=== PATIENT | female | born 1970 | race Caucasian/White ===

== ENCOUNTER 2018-01-28 19:17 | Emergency (ER) | payer BC, SELFPAY ==
[2018-01-28 19:18] VITALS: BP 173/100; PULSE 69; PULSE 84; RESP 18; TEMP 36.9; O2SAT 100; O2SAT 97; BMI 29.9
--- NOTE | 2018-01-28 19:23 | ED.RN ---
RN CALLED FOR EKG, NO OLD EKGS IN MUSE
--- NOTE | 2018-01-28 19:25 | EKG12_ITS ---
Test Reason : Blood Pressure : / mmHG Vent. Rate : 070 BPM Atrial Rate : 070 BPM P-R Int : 204 ms QRS Dur : 082 ms QT Int : 412 ms P-R-T Axes : 007 003 043 degrees QTc Int : 444 ms Normal sinus rhythm Normal ECG Confirmed by ALECIA AKBAR MD ([id number]), [employer] DANE CLINE ([id number]) on 02/01/2018 2:51:05 PM Referred By: MELANIE Confirmed By:ALECIA AKBAR MD
--- NOTE | 2018-01-28 19:25 | RAD_ITS ---
STUDY: X-RAY CHEST REASON FOR EXAM: Female, 47 years old. Chest pain TECHNIQUE: Single AP portable view of the chest. COMPARISON: None. FINDINGS: The lungs are clear and expanded. There is no demonstrated pleural abnormality. Normal size heart. Normal mediastinum and dex. Normal visualized pulmonary arteries. Normal visualized aortic arch and descending thoracic aorta. Normal visualized thoracic spine. Normal visualized ribs, clavicles, and shoulders. There is no demonstrated abnormality of the visualized soft tissue structures of the upper abdomen. RAD/Chest 1 View (Portable) IMPRESSION: Normal x-ray examination of the chest. Electronically Signed: Janel Zavala MD at 19:50 EST , Service support ,
[2018-01-28 19:30] VITALS: O2SAT 100
[2018-01-28] MEDS: Aspirin 81 MG TAB.CHEW 324 MG PO (19:35)
--- NOTE | 2018-01-28 19:39 | CT_ITS ---
STUDY: CT BRAIN WITHOUT CONTRAST REASON FOR EXAM: Female, 47 years old. Headache, chest pain and elevated blood pressure. RADIATION DOSAGE (If Supplied By Facility): CTDIvol = ( 44.99 ) mGy, DLP = ( 796.11 ) mGycm TECHNIQUE: Transaxial CT imaging of the brain was performed without administration of intravenous contrast material. Individualized dose optimization techniques were used for this CT. COMPARISON: None. FINDINGS: Normal soft tissue structures. Normal calvarium. Normal size ventricles and extra-axial spaces for the patient's age. Normal white matter tracts of the cerebral hemispheres. Normal basal ganglia and thalami. Normal brainstem. Normal cerebellum. There is no intracranial hemorrhage. There are no findings of an acute ischemic infarction. Normal visualized paranasal sinuses. CT/Brain/Head without Contrast IMPRESSION: Normal unenhanced CT scan of the brain. Electronically Signed: Janel Zavala MD at 20:32 EST , Service support ,
[2018-01-28] MEDS: Ondansetron 4 MG/2 ML Vial IV (19:44)
[2018-01-28] MEDS: morphine 8 MG/ML Syringe IV (19:44)
--- NOTE | 2018-01-28 19:44 | ED.DCSUM_ITS ---
- ER Visit Summary Date of Service: 01/28/18 Chief Complaint: [] Sharp stabbing chest pain since 3 PM today headache nasal congestion History of Present Illness: The patient is a 47 F [] she of hypertension and migraine headaches reports that today around 3:00 she been having sharp stabbing left-sided chest pain, she also complains of a typical migraine type headache and nasal pressure and congestion. She has had no fever no cough no numbness weakness or paresthesias she has no history of [place] PE DVT no risk factors she was at work today when the chest pain intensified she came in for evaluation she had normal bowel bladder habits Believe she had a prior evaluation for these headaches and was never told she has a history of brain aneurysms or tumors the headache is typical of her usual headache disorder but she is not sure why she has headache and chest pain today Physical Examination: [] Afebrile, 170/100 General, no distress resting comfortably HEENT is generally unremarkable The neck is supple no adenopathy Cardiovascular, regular rate and rhythm Lungs, clear bilateral Abdomen, soft nontender Extremities, no clubbing cyanosis or edema Neurologic, awake alert answering questions appropriately moving all 4 extremities The patient's lab studies are all generally unremarkable, as is the head CT, on reevaluation she is feeling better we discussed inpatient versus outpatient management we discussed the long differential for chest pain the concept of an occult cardiac condition or other conditions that are undiagnosable at this time, she indicates she understands all the above but does not wish to be admitted prefers outpatient management at this time she is discharged home she will take 2 baby aspirin a day follow with her doctors tomorrow return for change in symptoms Test Results: [] Emergency Department Course and Treatment: [] The EKG shows a sinus rhythm no acute injury pattern appreciated given her complaints screening labs pain management head CT Treatment Plan: [] Disposition: [] Home stable declined admission Impression: [] Sharp left-sided chest pain resolved This note was generated with [employer] dictation software. It may contain incorrect words, spelling, and punctuation that were not noted in review of the chart prior to signing ED Disposition - Plan for ED Patient: Chief Complaint: Chest Pain Referrals: Gutierrez Staples MD [Primary Care Provider] -
[2018-01-28] MEDS: 0.9% Normal Saline 1,000 ML 999 ML IV (19:46)
[2018-01-28 19:52] LABS: Absolute Lymphocyte Count 3.89 X10^3/ul (0.83-4.51); Absolute Neutrophil Count 5.5 X10^3/uL (2.0-7.7); Basophil# 0.03 X10^3/uL; Basophil% 0.3 % (0-1); Eosinophil# 0.08 X10^3/uL; Eosinophils% 0.8 % (0-5); Hematocrit 39.9 % (37-47); Hemoglobin 13.1 g/dl (12.0-15.0); Lymphocyte # 3.89 X10^3/ul (4.0); Mean Corp Hgb Conc 32.8 g/gl (32-36); Mean Corpuscular Hgb 28.7 pg (27.0-32.0); Mean Corpuscular Volume 87.5 fL (81-99); Mean Platelet Vol. 9.1 fl (6.2-12.0); Monocyte# 0.66 X10^3/uL; Monocyte% 6.5 % (0-10); Neutrophil # 5.51 X10^3/uL (2.7-7.7); Neutrophil % 53.8 % (47-70); Platelet Count 329 K/mm3 (150-450); RBC Distribution Width CV 13.7 % (11.6-14.6); RBC Distribution Width SD 43.4 fl (35.1-43.9); Red Blood Count 4.56 M/mm3 (4.2-5.4); White Blood Count 10.2 K/mm3 (4.4-11.0)
[2018-01-28 19:55] LABS: POSITIVE COUNT NO; POSITIVE DIFFERENTIAL NO; POSITIVE MORPHOLOGY NO
[2018-01-28 20:01] LABS: Anion Gap 7 (5-15); BUN 17 mg/dL (7-18); Calcium,Total 8.8 mg/dL (8.5-10.1); Chloride 104 mmol/L (98-107); Creatinine, Serum 0.85 mg/dL (0.55-1.02); EST Glomerular Filtration Rate 76 mL/min (>60); Est Glom Filt Rate - Afr Amer 92 mL/min (>60); Estimated Creatinine Clearance 80.42 ml/min; Glucose 89 mg/dL (74-106); Potassium 3.1 mmol/L (3.5-5.1); Sodium Level 138 mmol/L (136-145)
[2018-01-28 20:12] LABS: D-Dimer Quantitative (DVT/PE) 0.31 FEU/ug/m (0.27-0.49)
[2018-01-28 20:25] LABS: BNP,B-Type NATRIURETIC PEPTIDE 35.1 pg/mL (0-100)
--- NOTE | 2018-01-28 21:06 | ED.DEP ---
ED Disposition - Plan for ED Patient: Chief Complaint: Chest Pain Instructions: ED Chest Pain Atypical Unkn Cause Referrals: Gutierrez Staples MD [Primary Care Provider] - Additional Instructions: Please take 2 baby aspirin every day follow-up with your doctors return for change in symptoms
[2018-01-28 21:12] VITALS: BP 174/106; PULSE 72; RESP 16; O2SAT 95
== END 2018-01-28 21:20 | disposition home or self-care (01) ==
LOC: ED 19:55
PROVIDERS: Emergency Provider Emergency Medicine
DX: R07.9 Chest pain, unspecified (principal); I10 Essential (primary) hypertension; R51 Headache
CPT/HCPCS: 70450; 71045; 80048; 83880; 84484; 85025; 85379; 93005; 96361; 96374; 96375; 99285; J7030; J2405

== ENCOUNTER → 2019-02-10 17:04 | Outpatient (CLI) | payer BC, SELFPAY ==
--- NOTE | 2019-02-10 17:10 | RAD_ITS ---
STUDY: X-RAY - LUMBAR SPINE REASON FOR EXAM: Female, 48 years old. Pain TECHNIQUE: 3 view(s) of the lumbar spine were obtained. COMPARISON: None FINDINGS: Normal lumbar lordosis. There is no substantial scoliosis. There is a normal alignment of the vertebrae. Normal vertebral bodies with minimal spurring at the endplates. Normal disc space heights. The soft tissue structures are unremarkable. RAD/Lumbar Spine 2 or 3 Views IMPRESSION: Minimal degenerative changes of the lumbar spine. Electronically Signed: Tomas Chatterjee DO at 22:25 EST Tel [phone], Service support ,
== END ==
PROVIDERS: Referring Provider Anesthesiology Pain Medicine; Visit Provider Anesthesiology Pain Medicine
DX: M54.5 Low back pain (principal)
CPT/HCPCS: 72100

== ENCOUNTER → 2019-07-13 16:22 | Outpatient (CLI) | payer BC, SELFPAY ==
[2019-07-13 17:20] LABS: Amphetamine Urine VISTA NEGATIVE (<1000 ng/mL); Barbiturate Urine VISTA NEGATIVE (< 200 ng/mL); Benzodiazepine Urine VISTA NEGATIVE (< 200 ng/mL); Cocaine Urine VISTA NEGATIVE (< 300 ng/mL); Ecstacy Urine VISTA NEGATIVE (< 500 ng/mL); Methadone Urine VISTA NEGATIVE (< 300 ng/mL); PCP Urine VISTA NEGATIVE (< 25 ng/mL); THC Urine VISTA NEGATIVE (< 50 ng/mL); Vista UDS pH Range 5
== END ==
PROVIDERS: Referring Provider Anesthesiology Pain Medicine; Visit Provider Anesthesiology Pain Medicine
DX: F11.20 Opioid dependence, uncomplicated (principal)
CPT/HCPCS: 80307

== ENCOUNTER 2020-11-18 20:37 | Emergency (ER) | payer OTHER, SELFPAY ==
[2020-11-18 20:38] VITALS: BP 168/96; PULSE 74; RESP 18; TEMP 36.6; O2SAT 100; BMI 28.1
--- NOTE | 2020-11-18 20:52 | RAD_ITS ---
STUDY: X-RAY - RIGHT SHOULDER REASON FOR EXAM: Female, 50 years old. Pain after trauma TECHNIQUE: 2 view(s) of the shoulder. COMPARISON: None. FINDINGS: Normal glenohumeral articulation. Normal acromioclavicular joint. Normal acromion. Normal humeral head and visualized proximal humerus. The soft tissue structures are unremarkable. Normal visualized pulmonary apex. RAD/Shoulder min 2 Views IMPRESSION: Normal x-ray examination of the shoulder. Electronically Signed: Chris Corey MD at 22:08 EDT , Service support ,
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
--- NOTE | 2020-11-18 21:00 | RAD_ITS ---
STUDY: X-RAY - RIGHT ELBOW REASON FOR EXAM: Female, 50 years old. Pain after trauma TECHNIQUE: 3 view(s) of the elbow. COMPARISON: None. FINDINGS: Normal visualized humerus, radius and ulna. Normal radiocapitellar and ulnotrochlear articulations. The soft tissue structures are unremarkable. RAD/Elbow min 3 Views IMPRESSION: Normal x-ray examination of the elbow. Electronically Signed: Chris Corey MD at 22:08 EDT , Service support ,
[2020-11-18 21:55] VITALS: RESP 16
== END 2020-11-18 21:56 | disposition home or self-care (01) ==
LOC: ED 21:49
PROVIDERS: Emergency Provider Emergency Medicine; PCP Nurse Practitioner Family
DX: S40.021A Contusion of right upper arm, initial encounter (principal); S50.311A Abrasion of right elbow, initial encounter; V28.0XXA Motorcycle driver injured in noncollision transport accident in nontraffic accident, initial encounter; Y93.89 Activity, other specified; Y92.9 Unspecified place or not applicable; Y99.9 Unspecified external cause status; I10 Essential (primary) hypertension; M19.90 Unspecified osteoarthritis, unspecified site; Z79.899 Other long term (current) drug therapy; Z79.1 Long term (current) use of non-steroidal anti-inflammatories (NSAID)
CPT/HCPCS: 73030; 73080; 99282